=== PATIENT | female | born 1970 ===

== ENCOUNTER 2020-05-09 10:17 | Outpatient (REF) | payer OTHER, SELFPAY ==
[2020-05-09 11:25] LABS: Estimated Average Glucose 157 mg/dL; Hemoglobin A1c % 7.1 %
[2020-05-09 11:47] LABS: Alanine Aminotransferase 20 U/L (0-31); Anion Gap 14 (12-20); Aspartate Amino Transferase 18 U/L (5-31); Blood Urea Nitrogen 16 mg/dL (9-16); Calcium 8.9 mg/dL (8.4-10.2); Carbon Dioxide 20 mmol/L (22-29); Chloride 108 mmol/L (96-108); Cholesterol 157 mg/dL; Estimated Glomerular Filt Rate > 60; Glucose Fasting 149 mg/dL (60-99); HDL Cholesterol 37 mg/dL; LDL Cholesterol Calculated 89 mg/dl; Potassium 3.9 mmol/l (3.3-5.1); Sodium 138 mmol/L (135-145); Triglycerides 158 mg/dL
[2020-05-09 14:28] LABS: Creatinine Urine 182.96 mg/dL; Microalbum/Creatinine Ratio Ur 16.9 ug/mg cr
== END 2020-05-09 10:18 | disposition home or self-care (01) ==
LOC: HO.HMGCLDS 10:17
PROVIDERS: PCP Internal Medicine; Visit Provider Internal Medicine
DX: E78.5 Hyperlipidemia, unspecified (principal); I10 Essential (primary) hypertension; E11.29 Type 2 diabetes mellitus with other diabetic kidney complication; E11.65 Type 2 diabetes mellitus with hyperglycemia; E66.9 Obesity, unspecified; R80.9 Proteinuria, unspecified; Z79.4 Long term (current) use of insulin
CPT/HCPCS: 80048; 80061; 82043; 83036; 84450; 84460

== ENCOUNTER → 2020-08-18 09:46 | Outpatient (REF) | payer OTHER, SELFPAY ==
--- NOTE | 2020-08-18 09:53 | ECG_ITS ---
Test Reason : HTN Blood Pressure : / mmHG Vent. Rate : 053 BPM Atrial Rate : 053 BPM P-R Int : 132 ms QRS Dur : 100 ms QT Int : 442 ms P-R-T Axes : 063 -21 002 degrees QTc Int : 414 ms Sinus bradycardia with occasional Premature ventricular complexes Moderate voltage criteria for LVH, may be normal variant Borderline ECG No previous ECGs available Referred By: Vanna Stephens Electronically Signed By:JENNIFER LIVE
== END ==
LOC: HO.CARD 09:46
PROVIDERS: PCP Internal Medicine; Visit Provider Internal Medicine
DX: Z01.818 Encounter for other preprocedural examination (principal); I10 Essential (primary) hypertension; E78.5 Hyperlipidemia, unspecified; E11.65 Type 2 diabetes mellitus with hyperglycemia; Z79.4 Long term (current) use of insulin
CPT/HCPCS: 93005

== ENCOUNTER 2021-09-10 09:18 | Outpatient (REF) | payer OTHER, SELFPAY ==
[2021-09-10 11:11] LABS: MANUAL DIFF FLAG NO
[2021-09-10 11:22] LABS: Basophils Percent Auto 0.5 % (0-2); Eosinophils Absolute Auto 0.4 X10*3/uL (0.0-0.4); Eosinophils Percent Auto 6.5 % (0-4); Hematocrit 40.2 % (37.0-47.0); Hemoglobin 12.8 g/dl (12.0-16.0); Imm Gran Abs Auto 0.01 X10*3/uL (0.00-0.03); Imm Gran Pct Auto 0.2 % (0.0-0.4); Lymphocytes Absolute Auto 2.3 X10*3/uL (1.2-4.9); Mean Corpuscular HGB Conc 31.8 g/dl (31.0-35.0); Mean Corpuscular Hemoglobin 27.5 pg (27.0-33.0); Mean Corpuscular Volume 86.3 fL (80.0-98.0); Mean Platelet Volume 11.4 fL (9.4-12.3); Monocytes Absolute Auto 0.7 X10*3/uL (0.1-1.2); Monocytes Percent Auto 10.5 % (2-11); Neutrophils Absolute Auto 2.9 x10*3/uL (2.0-8.3); Neutrophils Percent Auto 46.3 % (45-73); Platelet Count 332 X10*3/uL (160-400); Red Blood Count 4.66 X10*6/uL (4.20-5.50); Red Cell Distribution Width 14.6 % (11.0-16.0); White Blood Count 6.3 X10*3/uL (4.8-10.8)
[2021-09-10 11:33] LABS: Alanine Aminotransferase 13 U/L (0-31); Anion Gap 14 (12-20); Aspartate Amino Transferase 12 U/L (5-31); Blood Urea Nitrogen 13 mg/dL (9-16); Calcium 9.5 mg/dL (8.4-10.2); Carbon Dioxide 19 mmol/L (22-29); Chloride 111 mmol/L (96-108); Cholesterol 174 mg/dL; Estimated Glomerular Filt Rate 59; Glucose Fasting 168 mg/dL (60-99); HDL Cholesterol 35 mg/dL; LDL Cholesterol Calculated 99 mg/dl; Potassium 3.7 mmol/L (3.3-5.1); Sodium 140 mmol/L (135-145); Triglycerides 204 mg/dL
[2021-09-10 11:55] LABS: Vitamin D 25-OH Total 9.5 ng/mL (>30)
[2021-09-10 11:57] LABS: Creatinine Urine 39.42 mg/dL; Microalbum/Creatinine Ratio Ur 17.7 ug/mg cr
== END 2021-09-10 09:19 | disposition home or self-care (01) ==
LOC: HO.HMGCLDS 09:18
PROVIDERS: Visit Provider Internal Medicine
DX: E11.29 Type 2 diabetes mellitus with other diabetic kidney complication (principal); E11.65 Type 2 diabetes mellitus with hyperglycemia; E78.5 Hyperlipidemia, unspecified; I10 Essential (primary) hypertension; R80.9 Proteinuria, unspecified; Z79.4 Long term (current) use of insulin
CPT/HCPCS: 36415; 80048; 80061; 82043; 82306; 84450; 84460; 85025

== ENCOUNTER 2022-12-13 13:41 | Outpatient (REF) | payer OTHER, SELFPAY ==
[2022-12-13 17:14] LABS: Alanine Aminotransferase 16 U/L (0-31); Anion Gap 13 (12-20); Aspartate Amino Transferase 14 U/L (5-31); Blood Urea Nitrogen 14 mg/dL (9-16); Calcium 9.3 mg/dL (8.4-10.2); Carbon Dioxide 18 mmol/L (22-29); Chloride 111 mmol/L (96-108); Cholesterol 156 mg/dL; Estimated Glomerular Filt Rate > 60; Glucose Fasting 159 mg/dL (60-99); HDL Cholesterol 39 mg/dL; LDL Cholesterol Calculated 91 mg/dl; Potassium 3.8 mmol/L (3.3-5.1); Sodium 138 mmol/L (135-145); Triglycerides 132 mg/dL
[2022-12-14 05:28] LABS: Estimated Average Glucose 160 mg/dL; Hemoglobin A1c % 7.2 %
== END 2022-12-13 13:42 | disposition home or self-care (01) ==
LOC: HO.HMGCLDS 13:41
PROVIDERS: PCP Internal Medicine; Visit Provider Internal Medicine
DX: E11.29 Type 2 diabetes mellitus with other diabetic kidney complication (principal); E78.5 Hyperlipidemia, unspecified; I10 Essential (primary) hypertension; R80.9 Proteinuria, unspecified; Z79.4 Long term (current) use of insulin
CPT/HCPCS: 36415; 80048; 80061; 82043; 82306; 83036; 84450; 84460

== ENCOUNTER 2022-12-21 09:34 | Outpatient (AMB) | payer OTHER, SELFPAY ==
--- NOTE | 2022-12-21 09:44 | A.OFFPC_ITS ---
<Statement entered by Vanna Stephens MD - 07/01/25 00:06> This note has been administratively?closed. Vital Signs 12/21/22 09:46 Height 5 ft 4 in Weight 200 lb BMI 34.3 BP 144/80 H Blood Pressure Location Lt brachial Position Sitting Pulse 58 Pulse Source Pulse Oximeter Pulse Oximetry (%) 96 Oxygen Delivery Method Room Air Intake Visit Reasons: f/u DM Intake Note: Pt is here today to f/u DM Allergies No Known Allergies Allergy (Verified 02/14/25 15:39) Medication List - Last Reconciled 12/21/22 by Vanna Stephens MD acetaminophen 650 mg PO Q6H acetazolamide ER 500 mg PO BID aspirin 81 mg PO DAILY blood sugar diagnostic (FreeStyle Lite Strips) Check blood sugar before meals 3 times a day; 30 days ibuprofen 200 mg PO Q6H PRN insulin glargine (Lantus Solostar U-100 Insulin) 50 units (0.5 mL) subcut QPM lisinopril 5 mg PO DAILY metformin 1,000 mg PO BID nifedipine ER 90 mg PO DAILY pen needle, diabetic (BD Ultra-Fine Mini Pen Needle) Use to inject insulin once daily Tobacco use date assessed: 12/21/22 Dental Screening Dental Screen Date: 12/21/22 HPI HPI Comments History of Present Illness Details 52-year-old lady here today for follow-u p on her diabetes mellitus. She is currently on Lantus Solostar 50 units at night, and metformin 1000 mg twice a day. Latest hemoglobin A1c is at 7.2%, and fasting lipids are within normal limits with an LDL cholesterol at 91 mg/dL. [facility] Medical History Tendinitis of right forearm Encephalocele Cerebrospinal fluid leak Obesity Meningioma Essential hypertension Dyslipidemia Diabetes mellitus with hyperglycemia, with long-term current use of insulin Surgical History H/O nasal sinusotomy History of ethmoidectomy History of resection of meningioma History of tubal ligation Family History Father Unknown family medical history Mother History of heart attack Stroke HTN (hypertension) Diabetes mellitus CVD (cardiovascular disease) Brother No problems noted. Sister No problems noted. Son No problems noted. Daughter No problems noted. Daughter No problems noted. Social History Housing: Apartment Alcohol intake: never Patient Tobacco Use Status: Current everyday Tobacco user Cigarettes Per Day: 5 e-Cigarette/Vaping Use: Never Used service: No Current occupational status: unemployed Cognitive needs: No Hearing needs: No Vision needs: Yes Questionnaire PHQ-9 Over the last 2 weeks, how often have you been bothered by any of the following problems? Depression Screening Interpretation: Negative [id number] - PHQ-9 Billing: Patient declined-do not bill Source: Developed by Drs. Bahman Wheat, Bety Amaya, Jerome Quiles and colleagues, with an educational arun from [employer]. Thrive Questionnaire Date Thrive assessed: 12/21/22 I am a: Patient What is your living situation today?: I have a steady place to live Within the past 12 months, did the food you bought not last and you didn't have the money to get more?: Never true Within the past 12 months, did you worry whether your food would run out before you got money to buy more?: Never true Do you have trouble paying for medicines?: No Do you have trouble getting transportation to medical appointments?: No Do you have trouble paying your heating and electricity bill?: No Do you have trouble taking care of your child, family member or friend?: No Do you have trouble with day-to-day activities such as bathing, preparing meals, shopping, managing finances, etc.?: I choose not to answer this question Are you currently unemployed and looking for a job?: No Are you interested in more education?: No AUDIT C Alcohol Use Questionnaire (AUDIT-C) 1. How often do you have a drink containing alcohol?: Never Total Score: 0 KYREE-7 AMB Questionnaire KYREE-7 Date KYREE - 7 assessed: 12/21/22 Source: Developed by Drs. Bahman Wheat, Jerome Olivia and colleagues, with an educational arun from [employer]. KYREE-7 Assessment Billing KYREE-7 Assessment Tool: pt declined-do not bill Physical exam (Primary Care) Vital Signs: Last Vital Signs Pulse 58 12/21/22 09:46 BP 144/80 H 12/21/22 09:46 Pulse Ox 96 12/21/22 09:46 Oxygen Delivery Method Room Air 12/21/22 09:46 BMI result Body Mass Index 34.3 Tobacco/Smoking Status: Tobacco use Status Tobacco use date assessed 12/21/22 12/21/22 09:44 Patient Tobacco Use Status Current everyday Tobacco 12/21/22 09:44 e-Cigarette/Vaping Use Never Used 12/21/22 09:44 Are you ready to quit: No Depression Screening Interpretation: Negative Thrive Assessment: Date of Thrive Assessment Date Thrive assessed 12/21/22 12/21/22 10:11 Const Other: Alert oriented x3, no acute distress noted ambulatory with normal gait Orientation/consciousness: patient oriented x3 HENMT Head: Yes normocephalic and Yes atraumatic Ears: external ears normal, TM's normal bilaterally and EAC's normal General nose exam: Normal external nose present and No nasal discharge present Eyes General: appearance normal, both eyes and all related structures Neck Other: Supple, no lymphadenopathy, thyroid gland nonpalpable Resp Auscultation: clear to auscultation bilaterally Cardio Other: S1-S2 present regular rate and rhythm GI Other: Obese, normal bowel sounds, soft, nontender, no mass palpated Neuro General: patient oriented x3, gait normal, tone normal, Normal light touch and pain sensation, no focal motor deficits and CN's II-XI intact bilaterally Extrem General: Yes full ROM, Yes no joint enlargement, Yes no clubbing, cyanosis or edema, Yes no calf tenderness and Yes normal gait Results Reviewed Results Reviewed: ENTERED: 12/13/22-1346 OT : ORDERED: Met Prof Fast, AST, ALT, Lipid Panel, Vitamin D 25-OH Test Result Flag Reference Site Sodium 138 135-145 mmol/L Potassium 3.8 3.3-5.1 mmol/L CL 111 H 96-108 mmol/L CO2 18 L 22-29 mmol/L Gap 13 12-20 BUN 14 9-16 mg/dL Creat 0.92 0.5-1.4 mg/dL EGFR > 60 NOTE: For -[place] individuals, multiply the result by 1.210. Chronic Kidney Disease: Estimated GFR < 60 mL/min/1.73m2 Severe Kidney Disease: Estimated GFR < 15 mL /min/1.73m2 FBS 159 H 60-99 mg/dL A fasting glucose of 126 mg/dl or greater on more than one occasion is considered diagnostic of diabetes. CA 9.3 8.4-10.2 mg/dL AST (GOT) 14 5-31 U/L ALT (GPT) 16 0-31 U/L Triglyceride 132 mg/dL Desirable Triglyceride: less than 150 mg/dL Borderline High Triglyceride 150-199 mg/dL High Triglyceride: 200-499 mg/dL Very High Triglyceride: greater than or equal to 5OO mg/dL Chol 156 mg/dL Desirable Cholesterol: less than 200 mg/dL Borderline High Cholesterol: 200-239 mg/dL High Cholesterol: greater than 239 mg/dL LDL Calculated 91 mg/dl Desirable LDL: less than 100 mg/dL Near Optimal/Above Optimal LDL: 110-129 mg/dL Borderline High LDL: 130-159 mg/dL High LDL: 160-189 mg/dL Very High LDL: greater than or equal to 190 mg/dL HDL 39 mg/dL Desirable HDL: greater than 40 mg/dL Note: This HDL assay may give artificially low results in patients with liver disease. Vit D 25-OH Tot 39.0 >30 ng/mL Health Based Reference Values* Laboratory Tests 09/10/21 12/13/22 08:21 13:47 Estimat Average Glucose 160 Hgb A1c (Clinic) 7.3 H Hemoglobin A1c % 7.2 ENTERED: 12/13/22-[address]: ORDERED: Met Prof Fast, AST, ALT, Lipid Panel, Vitamin D 25-OH N Test Result Flag Reference Site Sodium 138 135-145 mmol/L Potassium 3.8 3.3-5.1 mmol/L CL 111 H 96-108 mmol/L CO2 18 L 22-29 mmol/L Gap 13 12-20 BUN 14 9-16 mg/dL Creat 0.92 0.5-1.4 mg/dL EGFR > 60 NOTE: For -[place] individuals, multiply the result by 1.210. Chronic Kidney Disease: Estimated GFR < 60 mL/min/1.73m2 Severe Kidney Disease: Estimated GFR < 15 mL/min/1.73m2 FBS 159 H 60-99 mg/dL A fasting glucose of 126 mg/dl or greater on more than one occasion is considered diagnostic of diabetes. CA 9.3 8.4-10.2 mg/dL AST (GOT) 14 5-31 U/L ALT (GPT) 16 0-31 U/L Triglyceride 132 mg/dL Desirable Triglyceride: less than 150 mg/dL Borderline High Triglyceride 150-199 mg/dL High Triglyceride: 200-499 mg/dL Very High Triglyceride: greater than or equal to 5OO mg/dL Chol 156 mg/dL Desirable Cholesterol: less than 200 mg/dL Borderline High Cholesterol: 200-239 mg/dL High Cholesterol: greater than 239 mg/dL LDL Calculated 91 mg/dl Desirable LDL: less than 100 mg/dL Near Optimal/Above Optimal LDL: 110-129 mg/dL Borderline High LDL: 130-159 mg/dL High LDL: 160-189 mg/dL Very High LDL: greater than or equal to 190 mg/dL HDL 39 mg/dL Desirable HDL: greater than 40 mg/dL Note: This HDL assay may give artificially low results in patients with liver disease. Vit D 25-OH Tot 39.0 >30 ng/mL Health Based Reference Values* ENTERED: 12/13/22-[address] [facility] [address]: ORDERED: LETICIA Test Result Flag Reference Site Creat, Ur 186.50 mg/dL Microalbumin Ur 28.0 mg/L Alb/Creat Ratio 15.0 ug/mg cr Albumin/Creatinine Ratio Reference Ranges: Normal: < 30 ug/mg creatinine Microalbuminuria: 30 - 300 ug/mg creatinine Clinical Albuminuria: > 300 ug/mg creatinine Coding Level of Care Code Est Pt Level 4 (87224) Admin Sign Off/No Billing Diagnoses Controlled type 2 diabetes mellitus with microalbuminuria, with long-term current use of insulin E11.29; R80.9; Z79.4 Diabetes mellitus complication detail: with microalbuminuria Diabetes mellitus complication status: with kidney complications Essential hypertension I10 Dyslipidemia E78.5
[2022-12-21 09:46] VITALS: BP 144/80; PULSE 58; O2SAT 96; BMI 34.3
== END 2022-12-21 10:32 | disposition home or self-care (01) ==
PROVIDERS: PCP Internal Medicine; Visit Provider Internal Medicine
DX: E11.29 Type 2 diabetes mellitus with other diabetic kidney complication (principal); R80.9 Proteinuria, unspecified; Z79.4 Long term (current) use of insulin; I10 Essential (primary) hypertension; E78.5 Hyperlipidemia, unspecified
CPT/HCPCS: 99499

== ENCOUNTER 2023-11-07 10:31 | Outpatient (REF) | payer OTHER, SELFPAY ==
[2023-11-07 13:31] LABS: Estimated Average Glucose 194 mg/dL; Hemoglobin A1c % 8.4 % (<6.0)
[2023-11-07 13:54] LABS: Alanine Aminotransferase 12 U/L (0-31); Anion Gap 18 (12-20); Aspartate Amino Transferase 13 U/L (5-31); Blood Urea Nitrogen 21 mg/dL (9-16); Carbon Dioxide 17 mmol/L (22-29); Chloride 110 mmol/L (96-108); Cholesterol 182 mg/dL (<200); Estimated Glomerular Filt Rate 59; Glucose Fasting 187 mg/dL (60-99); HDL Cholesterol 32 mg/dL (>40); LDL Cholesterol Calculated 110 mg/dL (<100); Potassium 3.9 mmol/L (3.3-5.1); Sodium 141 mmol/L (135-145); Triglycerides 204 mg/dL (<150)
[2023-11-07 13:55] LABS: Vitamin D 25-OH Total 54.3 ng/mL (>30)
[2023-11-07 13:56] LABS: Creatinine Urine 70.88 mg/dL; Microalbum/Creatinine Ratio Ur 409.1 ug/mg cr (<30)
== END 2023-11-07 10:32 | disposition home or self-care (01) ==
LOC: HO.HMGCLDS 10:31
PROVIDERS: PCP Internal Medicine; Visit Provider Internal Medicine
DX: E11.29 Type 2 diabetes mellitus with other diabetic kidney complication (principal); R80.9 Proteinuria, unspecified; Z79.4 Long term (current) use of insulin; E66.9 Obesity, unspecified; I10 Essential (primary) hypertension; E78.5 Hyperlipidemia, unspecified; E11.65 Type 2 diabetes mellitus with hyperglycemia; Z78.0 Asymptomatic menopausal state
CPT/HCPCS: 36415; 80048; 80061; 82043; 82306; 82570; 83036; 84450; 84460

== ENCOUNTER 2023-11-09 10:54 | Outpatient (AMB) | payer OTHER, SELFPAY ==
--- NOTE | 2023-11-09 11:07 | MHC.PC.OV ---
Vital Signs 11/09/23 11:08 Height 5 ft 4 in Weight 195 lb BMI 33.5 BP 154/100 H Blood Pressure Location Rt brachial Position Sitting Pulse 51 Pulse Source Pulse Oximeter Pulse Oximetry (%) 97 Oxygen Delivery Method Room Air Intake Visit Reasons: OVERDUE FUP- DM NEEDS A1C Intake Note: Pt is here today to f/u DM Allergies No Known Allergies Allergy (Verified 11/14/23 14:45) Medication List - Last Reconciled 11/09/23 by Vanna Stephens MD acetaminophen 650 mg PO Q6H acetazolamide ER 500 mg PO BID aspirin 81 mg PO DAILY blood sugar diagnostic (FreeStyle Lite Strips) 1 strip miscellaneous TID 30 days cholecalciferol (vitamin D3) 50 mcg PO DAILY FreeStyle Deb 2 [place] (flash glucose scanning reader) As directed NS FreeStyle Deb 2 Sensor (flash glucose sensor) As directed NS ibuprofen 200 mg PO Q6H PRN insulin glargine (Lantus Solostar U-100 Insulin) 54 units (0.54 mL) subcut QPM 30 days lisinopril 10 mg PO DAILY metformin 1,000 mg PO BID nifedipine ER 90 mg PO DAILY pen needle, diabetic (BD Ultra-Fine Mini Pen Needle) Use to inject insulin once daily Tobacco use date assessed: 11/09/23 Dental Screening Dental Screen Date: 11/09/23 Did you have a dental visit in the last 12 months?: Yes Did you have a dental problem in the last 6 months where you did not have access to dental care?: Yes Was dental information given to patient?: Patient has dentist HPI OVERDUE FUP- DM NEEDS A1C HPI Details 53 Year old lady here today for follow-up on her hypertension and diabetes mellitus. Currently takes Lantus 50 units subQ at night, and metformin a 1000 mg 1 tablet twice a day. Latest fasting labs however showed uncontrolled diabetes mellitus with an A1c at 8.4%, and elevated LDL cholesterol at 110 mg/dL . Her blood pressure is also not at goal, despite taking lisinopril 10 mg once a and nifedipine ER 90 mg daily. She states that she has been taking her medications as directed, compliant with her diet but no exercise at all. She is also complaining of pain on right forearm just below the elbow, unable to do any twisting motion with her right hand, unable to open jars with her right hand. No history of trauma or strenuous exertion. [facility] Medical History (Updated 11/09/23 @ 12:04 by Vanna Stephens MD) Tendinitis of right forearm Encephalocele Cerebrospinal fluid leak Obesity Meningioma Essential hypertension Dyslipidemia Diabetes mellitus with hyperglycemia, with long-term current use of insulin Surgical History H/O nasal sinusotomy History of ethmoidectomy History of resection of meningioma History of tubal ligation Family History Father Unknown family medical history Mother History of heart attack Stroke HTN (hypertension) Diabetes mellitus CVD (cardiovascular disease) Brother No problems noted. Sister No problems noted. Son No problems noted. Daughter No problems noted. Daughter No problems noted. Social History Housing: Apartment Alcohol intake: never Patient Tobacco Use Status: Current everyday Tobacco user Cigarettes Per Day: 4 e-Cigarette/Vaping Use: Never Used service: No Current occupational status: unemployed Cognitive needs: No Hearing needs: No Vision needs: Yes Questionnaire PHQ-9 Over the last 2 weeks, how often have you been bothered by any of the following problems? 1. Little interest or pleasure in doing things: not at all 2. Feeling down, depressed, or hopeless: not at all 3. Trouble falling or staying asleep, or sleeping too much: not at all 4. Feeling tired or having little energy: not at all 5. Poor appetite or overeating: not at all 6. Feeling bad about yourself - or that you are a failure or have let yourself or your family down: not at all 7. Trouble concentrating on things, such as reading the newspaper or watching television: not at all 8. Moving or speaking so slowly that other people could have noticed. Or the opposite - being so fidgety or restless that you have been moving around a lot more than usual: not at all 9. Thoughts that you would be better off or of hurting yourself in some way: not at all Total score: 0 Depression Screening Interpretation: Negative Depression Screening Done: Yes 12184 - PHQ-9 Billing: Yes Source: Developed by Drs. Bahman Wheat, Bety Amaya, Jerome Quiles and colleagues, with an educational arun from [employer]. Thrive Questionnaire Date Thrive assessed: 11/09/23 I am a: Patient What is your living situation today?: I have a steady place to live Within the past 12 months, did the food you bought not last and you didn't have the money to get more?: Never true Within the past 12 months, did you worry whether your food would run out before you got money to buy more?: Never true Do you have trouble paying for medicines?: No Do you have trouble getting transportation to medical appointments?: No Do you have trouble paying your heating and electricity bill?: Yes Do you have trouble taking care of your child, family member or friend?: No Do you have trouble with day-to-day activities such as bathing, preparing meals, shopping, managing finances, etc.?: Yes Are you currently unemployed and looking for a job?: No Are you interested in more education?: No THRIVE Score: 1 AUDIT C Alcohol Use Questionnaire (AUDIT-C) 1. How often do you have a drink containing alcohol?: Never Total Score: 0 KYREE-7 AMB Questionnaire KYREE-7 Date KYREE - 7 assessed: 11/09/23 Feeling nervous, anxious, or on edge: 0 = Not at all Not being able to stop or control worryin = Not at all Worrying too much about different things: 0 = Not at all Trouble relaxin = Not at all Being so restless that it is hard to sit still: 0 = Not at all Becoming easily annoyed or irritable: 0 = Not at all Feeling afraid as if something awful might happen: 0 = Not at all Total KYREE-7 score (0-4 normal; 5-9 mild; 10-14 moderate; 15-21 severe): 0 Source: Developed by Drs. Bahman Wheat, Bety Amaya, Jerome Quiles and colleagues, with an educational arun from [employer]. KYREE-7 Assessment Billing KYREE-7 Assessment Tool: KYREE-7 Assessment 23868 Review of Systems Const Denies body aches, Denies fatigue, Denies fever(s), Denies headache(s) and Denies weakness Eyes Details: Sees [facility] Denies change in vision ENT Denies dizziness, Denies headache(s), Denies nasal congestion, Denies nasal obstruction, Denies neck pain, Denies post nasal drip, Denies tinnitus and Denies sore throat Card Denies chest pain, Denies lightheadedness, Denies palpitations and Denies dyspnea Resp Denies chest congestion, Denies cough, Denies dyspnea and Denies wheezing GI Denies abdominal pain, Denies change in bowel habits and Denies heartburn Denies urinary frequency, Denies dysuria and Denies urinary urgency Musc Reports as per HPI, Denies myalgias, Denies muscle weakness, Denies neck pain, Denies numbness and Reports radiating pain into limb (Right for) Skin/Breast Denies lesions and Denies rash Neuro Denies dizziness, Denies headache(s), Denies numbness and Denies weakness Psych Reports as per HPI Endo Denies fatigue, Denies polydipsia, Denies polyuria and Denies palpitations Jaron/Lymph Denies easy bruising Aller/Immun Denies seasonal rhinorrhea and Denies wheezing Physical exam (Primary Care) Vital Signs: Last Vital Signs Pulse 51 11/09/23 11:08 BP 154/100 H 11/09/23 11:08 Pulse Ox 97 11/09/23 11:08 Oxygen Delivery Method Room Air 11/09/23 11:08 BMI result Body Mass Index 33.5 Tobacco/Smoking Status: Tobacco use Status Tobacco use date assessed 11/09/23 11/09/23 11:15 Patient Tobacco Use Status Current everyday Tobacco 11/09/23 11:08 e-Cigarette/Vaping Use Never Used 11/09/23 11:08 Are you ready to quit: No PHQ-9: PHQ-9 Score PHQ-9: Total score 0 11/09/23 11:56 Depression Screening Interpretation: Negative Thrive Assessment: Date of Thrive Assessment Date Thrive assessed 11/09/23 11/09/23 11:56 Const Other: Alert oriented x3, no acute distress noted ambulatory with normal gait HENMT Head: Yes normocephalic Ears: external ears normal General nose exam: Normal external nose present and No nasal discharge present Eyes General: appearance normal, both eyes and all related structures Neck Other: Supple, no lymphadenopathy, thyroid gland nonpalpable Resp Auscultation: clear to auscultation bilaterally Cardio Other: S1-S2 present regular rate and rhythm GI Other: Obese, normal bowel sounds, soft, nontender, no mass palpated General: Yes no CVA tenderness Back/Spine/Pelvis Back: no CVA tenderness and No back tenderness Neuro General: gait normal, tone normal, Normal light touch and pain sensation, no focal motor deficits and CN's II-XI intact bilaterally Extrem General: Yes full ROM, Yes no joint enlargement, Yes no clubbing, cyanosis or edema, Yes no calf tenderness and Yes normal gait Results Reviewed Results Reviewed: caron: Natalie Rayo Age/Sex: 53/F : 1970 Unit#: [id number] Attend Dr: Vanna Stephens MD Re11/07/23 Status: DEP REF Location: [facility] Disch: SPEC : [id number] GABRIELLE: 11/07/23 STATUS: COMP REQ : [id number] RECD: 11/07/23-[address]: Vanna Stephens MD COMP: 11/07/23 ENTERED: 11/07/23-[address]: ORDERED: Met Prof Fast, AST, ALT, Lipid Panel, Vitamin D 25-OH Test Result Flag Reference Sodium 141 135-145 mmol/L Potassium 3.9 3.3-5.1 mmol/L CL 110 H 96-108 mmol/L CO2 17 L 22-29 mmol/L Gap 18 12-20 BUN 21 H 9-16 mg/dL Creat 0.99 0.5-1.4 mg/dL EGFR 59 NOTE: For -[place] individuals, multiply the result by 1.210. Chronic Kidney Disease: Estimated GFR < 60 mL/min/1.73m2 Severe Kidney Disease: Estimated GFR < 15 mL/min/1.73m2 FBS 187 H 60-99 mg/dL A fasting glucose of 126 mg/dl or greater on more than one occasion is considered diagnostic of diabetes. CA 10.0 # 8.4-10.2 mg/dL AST (GOT) 13 5-31 U/L ALT (GPT) 12 0-31 U/L Triglyceride 204 H <150 mg/dL Desirable Triglyceride: less than 150 mg/dL Borderline High Triglyceride 150-199 mg/dL High Triglyceride: 200-499 mg/dL Very High Triglyceride: greater than or equal to 5OO mg/dL Cholesterol 182 <200 mg/dL Desirable Cholesterol: less than 200 mg/dL Borderline High Cholesterol: 200-239 mg/dL High Cholesterol: greater than 239 mg/dL LDL Calculated 110 H <100 mg/dL Desirable LDL: less than 100 mg/dL Near Optimal/Above Optimal LDL: 110-129 mg/dL Borderline High LDL: 130-159 mg/dL High LDL: 160-189 mg/dL Very High LDL: greater than or equal to 190 mg/dL HDL 32 L >40 mg/dL Desirable HDL: greater than 40 mg/dL Note: This HDL assay may give artificially low results in patients with liver disease. Vit D 25-OH Tot 54.3 >30 ng/mL Health Based Reference Values* < 20 ng/mL Deficient 20-30 ng/mL Insufficient > 30 ng/mL Sufficient Name: Natalie Rayo Age/Sex: 53/F : 1970 Unit#: [id number] Attend Dr: Vanna Stephens MD Re11/07/23 Status: DEP [facility] Disch: SPEC : [id number] GABRIELLE: 11/07/23 STATUS: COMP REQ : [id number] RECD: 11/07/[address]: Vanna Stephens MD COMP: 11/07/23 ENTERED: 11/07/23 [facility] DR: ORDERED: Hgb A1c Test Result Flag Reference A1c % 8.4 H <6.0 % Hemoglobin A1C Reference Range Adults: 4.8 - 6.0 % Non diabetic: < 6.0 % Goal: < 7.0 % Additional Action Suggested: > 8.0 % Note: Hemoglobin A1c results are invalid for patients with abnormal amounts of HbF. Blood transfusions may impact the HbA1c concentration in the patient sample. Est. Avg. Gluc 194 mg/dL Name: Natalie Rayo Age/Sex: 53/F : 1970 Unit#: [id number] Attend Dr: Vanna Stephens MD Re11/07/23 Status: DEP REF Location: [facility] Disch: SPEC : [id number] GABRIELLE: 11/07/23 STATUS: COMP REQ : [id number] RECD: 11/07/23-[address]: Vanna Stephens MD COMP: 11/07/23-1355 ENTERED: 11/07/23-[address]: ORDERED: MICARU Test Result Flag Reference Creat, Ur 70.88 mg/dL Microalbumin Ur 290.0 mg/L Alb/Creat Ratio 409.1 H <30 ug/mg cr Albumin/Creatinine Ratio Reference Ranges: Normal: < 30 ug/mg creatinine Microalbuminuria: 30 - 300 ug/mg creatinine Clinical Albuminuria: > 300 ug/mg creatinine Assessment and Plan Assessment & Plan (1) Diabetes mellitus with hyperglycemia, with long-term current use of insulin: Code(s): E11.65 - Type 2 diabetes mellitus with hyperglycemia; Z79.4 - long term acute care registered nurse (current) use of insulin Qualifiers: Diabetes mellitus type: type 2 Qualified Code(s): E11.65 - Type 2 diabetes mellitus with hyperglycemia; Z79.4 - senior care (current) use of insulin Plan: Recent lab results reviewed with patient, with sugar and hemoglobin A1c not at goal, at 8.4%. Continue metformin 1000 mg twice a day, and Lantus Solostar 54 units at night. Started on Jardiance 10 mg daily Continue check fasting blood sugar at least twice a day before meals., maintain log and bring to next appointment for review. Reinforced diabetic diet and regular exercise with patient. Counseled regarding importance of yearly diabetes retinopathy screening. Patient advised to inspect feet daily, for any signs of injury, callus or infection. Compliance with diet and regular exercise again stressed. Blood pressure goal is less than 130/80, goal LDL is less than 100 and goal hemoglobin A1c is less than 7% follow-up appointment made in--3-months, after fasting labs done. (2) Essential hypertension: Code(s): I10 - Essential (primary) hypertension Plan: Blood pressure not at goal, increase lisinopril dose to 20 mg daily. Reinforced importance of following healthy diet, low in salt, and get regular exercise (3) Dyslipidemia: Code(s): E78.5 - Hyperlipidemia, unspecified Plan: LDL not at goal of less than 100 mg/dL. Will start on rosuvastatin 5 mg per tablet taken once a day. Adhere to a low-cholesterol diet and get regular exercise (4) Tendinitis of right forearm: Code(s): M77.8 - Other enthesopathies, not elsewhere classified Plan: Occupational therapy referral ordered Orders: Orders Hemoglobin A1c 11/07/23 E11.29 - Type 2 diabetes mellitus with other diabetic kidney complication, E11.65 - Type 2 diabetes mellitus with hyperglycemia, E66.9 - Obesity, unspecified, E78.5 - Hyperlipidemia, unspecified, I10 - Essential (primary) hypertension, R80.9 - Proteinuria, unspecified, Z78.0 - Asymptomatic menopausal state, Z79.4 - senior care (current) use of insulin Lipid Panel 11/07/23 E11.29 - Type 2 diabetes mellitus with other diabetic kidney complication, E11.65 - Type 2 diabetes mellitus with hyperglycemia, E66.9 - Obesity, unspecified, E78.5 - Hyperlipidemia, unspecified, I10 - Essential (primary) hypertension, R80.9 - Proteinuria, unspecified, Z78.0 - Asymptomatic menopausal state, Z79.4 - long term acute care registered nurse (current) use of insulin Microalbumin, Random (w Creat) 11/07/23 E11.29 - Type 2 diabetes mellitus with other diabetic kidney complication, E11.65 - Type 2 diabetes mellitus with hyperglycemia, E66.9 - Obesity, unspecified, E78.5 - Hyperlipidemia, unspecified, I10 - Essential (primary) hypertension, R80.9 - Proteinuria, unspecified, Z78.0 - Asymptomatic menopausal state, Z79.4 - senior care (current) use of insulin Alanine Aminotransferase 11/07/23 E11.29 - Type 2 diabetes mellitus with other diabetic kidney complication, E11.65 - Type 2 diabetes mellitus with hyperglycemia, E66.9 - Obesity, unspecified, E78.5 - Hyperlipidemia, unspecified, I10 - Essential (primary) hypertension, R80.9 - Proteinuria, unspecified, Z78.0 - Asymptomatic menopausal state, Z79.4 - senior care (current) use of insulin Vitamin D 25-OH Total 11/07/23 E11.29 - Type 2 diabetes mellitus with other diabetic kidney complication, E11.65 - Type 2 diabetes mellitus with hyperglycemia, E66.9 - Obesity, unspecified, E78.5 - Hyperlipidemia, unspecified, I10 - Essential (primary) hypertension, R80.9 - Proteinuria, unspecified, Z78.0 - Asymptomatic menopausal state, Z79.4 - senior care (current) use of insulin Basic Metabolic Panel Fasting 11/07/23 E11.29 - Type 2 diabetes mellitus with other diabetic kidney complication, E11.65 - Type 2 diabetes mellitus with hyperglycemia, E66.9 - Obesity, unspecified, E78.5 - Hyperlipidemia, unspecified, I10 - Essential (primary) hypertension, R80.9 - Proteinuria, unspecified, Z78.0 - Asymptomatic menopausal state, Z79.4 - senior care (current) use of insulin Aspartate Amino Transferase 11/07/23 E11.29 - Type 2 diabetes mellitus with other diabetic kidney complication, E11.65 - Type 2 diabetes mellitus with hyperglycemia, E66.9 - Obesity, unspecified, E78.5 - Hyperlipidemia, unspecified, I10 - Essential (primary) hypertension, R80.9 - Proteinuria, unspecified, Z78.0 - Asymptomatic menopausal state, Z79.4 - long term acute care registered nurse (current) use of insulin Medications: New Jardiance (empagliflozin) Take 1 hour before breakfast in the morning just with a glass of water 10 mg PO QAM 30 tabs 5RF NS rosuvastatin 5 mg PO DAILY 30 tabs 6RF E11.65 - Type 2 diabetes mellitus with hyperglycemia, E78.5 - Hyperlipidemia, unspecified, Z79.4 - senior care (current) use of insulin Changed From lisinopril 10 mg PO DAILY 90 tabs 3RF E11.29 - Type 2 diabetes mellitus with other diabetic kidney complication, E11.65 - Type 2 diabetes mellitus with hyperglycemia, R80.9 - Proteinuria, unspecified, Z79.4 - senior care (current) use of insulin To lisinopril 20 mg PO DAILY 30 tabs 5RF E11.29 - Type 2 diabetes mellitus with other diabetic kidney complication, E11.65 - Type 2 diabetes mellitus with hyperglycemia, R80.9 - Proteinuria, unspecified, Z79.4 - long term acute care registered nurse (current) use of insulin Refilled metformin 1,000 mg PO BID 60 tabs 5RF cholecalciferol (vitamin D3) 50 mcg PO DAILY 90 caps 3RF insulin glargine (Lantus Solostar U-100 Insulin) 54 units (0.54 mL) subcut QPM 30 days 16.2 mL 5RF E11.65 - Type 2 diabetes mellitus with hyperglycemia, Z79.4 - long term acute care registered nurse (current) use of insulin Coding Level of Care Code Est Pt Level 4 (37782) Complex EM visit Add On G2211 Diagnoses Type 2 diabetes mellitus with hyperglycemia, with long-term current use of insulin E11.65; Z79.4 Diabetes mellitus type: type 2 Essential hypertension I10 Dyslipidemia E78.5 Tendinitis of right forearm M77.8 Additional Codes KYREE-7 Assessment Billing - KYREE-7 Assessment Tool: KYREE-7 Assessment 89288 ([id number])
[2023-11-09 11:08] VITALS: BP 154/100; PULSE 51; O2SAT 97; BMI 33.5
== END 2023-11-09 12:08 | disposition home or self-care (01) ==
PROVIDERS: PCP Internal Medicine; Visit Provider Internal Medicine
DX: E11.65 Type 2 diabetes mellitus with hyperglycemia (principal); Z79.4 Long term (current) use of insulin; I10 Essential (primary) hypertension; E78.5 Hyperlipidemia, unspecified; M77.8 Other enthesopathies, not elsewhere classified
CPT/HCPCS: 99214; G2211

== ENCOUNTER 2023-12-15 10:30 | Outpatient (RCR) | payer OTHER, SELFPAY | END 2024-02-13 11:44 | disposition home or self-care (01) | LOC: HO.OT 10:30 | PROVIDERS: PCP Internal Medicine; Visit Provider Internal Medicine | DX: M77.8 Other enthesopathies, not elsewhere classified (principal) | CPT/HCPCS: 97110; 97166 ==

== ENCOUNTER 2024-05-02 08:37 | Outpatient (REF) | payer OTHER, SELFPAY ==
[2024-05-02 10:38] LABS: Estimated Average Glucose 160 mg/dL; Hemoglobin A1C 189.9554 umol/L; Hemoglobin A1c % 7.2 % (<6.0)
[2024-05-02 11:11] LABS: Alanine Aminotransferase 10 U/L (0-31); Anion Gap 13 (12-20); Aspartate Amino Transferase 17 U/L (5-31); Blood Urea Nitrogen 18 mg/dL (9-16); Calcium 9.7 mg/dL (8.4-10.2); Carbon Dioxide 19 mmol/L (22-29); Chloride 113 mmol/L (96-108); Cholesterol 104 mg/dL (<200); Estimated Glomerular Filt Rate 58; Glucose Fasting 175 mg/dL (60-99); HDL Cholesterol 35 mg/dL (>40); LDL Cholesterol Calculated 48 mg/dL (<100); Potassium 3.8 mmol/L (3.3-5.1); Sodium 141 mmol/L (135-145); Triglycerides 108 mg/dL (<150); Vitamin D 25-OH Total 53.5 ng/mL (>30)
[2024-05-02 11:56] LABS: Creatinine Urine 81.72 mg/dL; Microalbum/Creatinine Ratio Ur 9.7 ug/mg cr (<30)
== END 2024-05-02 08:38 | disposition home or self-care (01) ==
LOC: HO.HMGCLDS 08:37
PROVIDERS: PCP Internal Medicine; Visit Provider Internal Medicine
DX: E66.9 Obesity, unspecified (principal); I10 Essential (primary) hypertension; E78.5 Hyperlipidemia, unspecified; E11.65 Type 2 diabetes mellitus with hyperglycemia; Z79.4 Long term (current) use of insulin
CPT/HCPCS: 36415; 80048; 80061; 82043; 82306; 82570; 83036; 84450; 84460

== ENCOUNTER 2024-07-04 09:04 | Outpatient (AMB) | payer OTHER, SELFPAY ==
[2024-07-04 09:05] VITALS: BP 132/82; PULSE 63; RESP 16; TEMP 36.4; O2SAT 97; BMI 32.8
--- NOTE | 2024-07-04 09:05 | A.OFFPC_ITS ---
Vital Signs 07/04/24 09:05 Height 5 ft 4 in Weight 191 lb BMI 32.8 BP 132/82 Blood Pressure Location Rt brachial Position Sitting Respiration 16 Pulse 63 Pulse Source Pulse Oximeter Temp 97.6 F Temp Source Oral Pulse Oximetry (%) 97 Oxygen Delivery Method Room Air Intake Visit Reasons: F/U~ Appt reschedule from 02/26 Intake Note: Pt is here today to f/u DM Allergies No Known Allergies Allergy (Verified 07/04/24 09:07) Tobacco use date assessed: 07/04/24 Dental Screening Dental Screen Date: 07/04/24 Did you have a dental visit in the last 12 months?: No Did you have a dental problem in the last 6 months where you did not have access to dental care?: No Was dental information given to patient?: No [facility] Medical History (Updated 05/02/24 @ 03:36 by Vanna Stephens MD) Tendinitis of right forearm Encephalocele Cerebrospinal fluid leak Obesity Meningioma Essential hypertension Dyslipidemia Diabetes mellitus with hyperglycemia, with long-term current use of insulin Surgical History (Updated 05/02/24 @ 03:36 by Vanna Stephens MD) H/O nasal sinusotomy History of ethmoidectomy History of resection of meningioma History of tubal ligation Family History Father Unknown family medical history Mother History of heart attack Stroke HTN (hypertension) Diabetes mellitus CVD (cardiovascular disease) Brother No problems noted. Sister No problems noted. Son No problems noted. Daughter No problems noted. Daughter No problems noted. Social History Housing: Apartment Alcohol intake: never Patient Tobacco Use Status: Current everyday Tobacco user Cigarettes Per Day: 4 e-Cigarette/Vaping Use: Never Used service: No Current occupational status: unemployed Cognitive needs: No Hearing needs: No Vision needs: Yes Questionnaire PHQ-9 Over the last 2 weeks, how often have you been bothered by any of the following problems? 1. Little interest or pleasure in doing things: not at all 2. Feeling down, depressed, or hopeless: not at all 3. Trouble falling or staying asleep, or sleeping too much: not at all 4. Feeling tired or having little energy: not at all 5. Poor appetite or overeating: not at all 6. Feeling bad about yourself - or that you are a failure or have let yourself or your family down: not at all 7. Trouble concentrating on things, such as reading the newspaper or watching television: not at all 8. Moving or speaking so slowly that other people could have noticed. Or the opposite - being so fidgety or restless that you have been moving around a lot more than usual: not at all 9. Thoughts that you would be better off or of hurting yourself in some way: not at all Total score: 0 Depression Screening Interpretation: Negative Depression Screening Done: Yes 32187 - PHQ-9 Billing: Yes Source: Developed by Drs. Bahman Wheat, Bety Amaya, Jerome Quiles and colleagues, with an educational arun from [employer]. Thrive Questionnaire Date Thrive assessed: 07/04/24 I am a: Patient What is your living situation today?: I have a steady place to live Within the past 12 months, did the food you bought not last and you didn't have the money to get more?: Never true Within the past 12 months, did you worry whether your food would run out before you got money to buy more?: Never true Do you have trouble paying for medicines?: No Do you have trouble getting transportation to medical appointments?: No Do you have trouble paying your heating and electricity bill?: No Do you have trouble taking care of your child, family member or friend?: No Do you have trouble with day-to-day activities such as bathing, preparing meals, shopping, managing finances, etc.?: No Are you currently unemployed and looking for a job?: No Are you interested in more education?: No THRIVE Score: 0 AUDIT C Alcohol Use Questionnaire (AUDIT-C) 1. How often do you have a drink containing alcohol?: Never Total Score: 0 KYREE-7 AMB Questionnaire KYREE-7 Date KYREE - 7 assessed: 07/04/24 Feeling nervous, anxious, or on edge: 0 = Not at all Not being able to stop or control worryin = Not at all Worrying too much about different things: 0 = Not at all Trouble relaxin = Not at all Being so restless that it is hard to sit still: 0 = Not at all Becoming easily annoyed or irritable: 0 = Not at all Feeling afraid as if something awful might happen: 0 = Not at all Total KYREE-7 score (0-4 normal; 5-9 mild; 10-14 moderate; 15-21 severe): 0 Source: Developed by Drs. Bahman Wheat, Bety Amaya, Jerome Quiles and colleagues, with an educational arun from [employer]. Physical exam (Primary Care) Tobacco/Smoking Status: Tobacco use Status Tobacco use date assessed 11/09/23 11/09/23 11:15 Patient Tobacco Use Status Current everyday Tobacco 11/09/23 11:08 e-Cigarette/Vaping Use Never Used 11/09/23 11:08 Depression Screening Interpretation: Negative Thrive Assessment: Date of Thrive Assessment Date Thrive assessed 11/09/23 11/09/23 11:56 Coding Additional Codes PHQ-9 - 14411 - PHQ-9 Billing: Yes ([id number])
--- NOTE | 2024-07-04 09:25 | A.OFFPC_ITS ---
Vital Signs 07/04/24 09:05 Height 5 ft 4 in Weight 191 lb BMI 32.8 BP 132/82 Blood Pressure Location Rt brachial Position Sitting Respiration 16 Pulse 63 Pulse Source Pulse Oximeter Temp 97.6 F Temp Source Oral Pulse Oximetry (%) 97 Oxygen Delivery Method Room Air Intake Visit Reasons: F/U~ Appt reschedule from 02/26 Intake Note: Pt is here today for a follow up. Allergies No Known Allergies Allergy (Verified 07/08/24 15:52) Medication List - Last Reconciled 07/04/24 by Vanna Stephens MD acetaminophen 650 mg PO Q6H acetazolamide ER 500 mg PO BID aspirin 81 mg PO DAILY blood sugar diagnostic (FreeStyle Lite Strips) 1 strip miscellaneous TID 30 days cholecalciferol (vitamin D3) 50 mcg PO DAILY ibuprofen 200 mg PO Q6H PRN insulin glargine (Lantus Solostar U-100 Insulin) 54 units (0.54 mL) subcut QPM 30 days Jardiance (empagliflozin) 10 mg PO QAM NS lisinopril 20 mg PO DAILY metformin 1,000 mg PO BID nifedipine ER 90 mg PO DAILY pen needle, diabetic (BD Ultra-Fine Mini Pen Needle) Use to inject insulin once daily rosuvastatin 5 mg PO DAILY Tobacco use date assessed: 11/09/23 Dental Screening Dental Screen Date: 11/09/23 HPI F/U~ Appt reschedule from 02/26 HPI Details 53-year-old lady with diabetes mellitus, currently on Jardiance 10 mg daily in a.m., Lantus 54 units at night and metformin 1000 mg 1 tablet twice a day, has dyslipidemia currently on rosuvastatin 5 mg daily, here today for her follow-up. She had recent fasting labs done which showed improvement in diabetes control now with hemoglobin A1c at 7.2%, as compared to an A1c of 8.4% in October of 2023. Fasting lipids are within normal limits, and urine microalbuminuria screening was negative. [facility] Medical History (Updated 07/04/24 @ 09:51 by Vanna Stephens MD) Tendinitis of right forearm Encephalocele Cerebrospinal fluid leak Obesity Meningioma Essential hypertension Dyslipidemia Diabetes mellitus with hyperglycemia, with long-term current use of insulin Surgical History H/O nasal sinusotomy History of ethmoidectomy History of resection of meningioma History of tubal ligation Family History Father Unknown family medical history Mother History of heart attack Stroke HTN (hypertension) Diabetes mellitus CVD (cardiovascular disease) Brother No problems noted. Sister No problems noted. Son No problems noted. Daughter No problems noted. Daughter No problems noted. Social History Housing: Apartment Alcohol intake: never Patient Tobacco Use Status: Current everyday Tobacco user Cigarettes Per Day: 4 e-Cigarette/Vaping Use: Never Used service: No Current occupational status: unemployed Cognitive needs: No Hearing needs: No Vision needs: Yes Questionnaire Thrive Questionnaire Date Thrive assessed: 11/09/23 KYREE-7 AMB Questionnaire KYREE-7 Date KYREE - 7 assessed: 11/09/23 Source: Developed by Drs. Bahman Wheat, Bety Amaya, Jerome Quiles and colleagues, with an educational arun from [employer]. Review of Systems Const Denies body aches, Denies fatigue, Denies fever(s), Denies headache(s) and Denies weakness Eyes Details: Goes to [facility] in [place] for her diabetes retinopathy screening Denies change in vision ENT Denies dizziness, Denies headache(s), Denies nasal congestion, Denies nasal obstruction, Denies neck pain, Denies post nasal drip, Denies tinnitus and Denies sore throat Card Denies chest pain, Denies lightheadedness, Denies palpitations and Denies dyspnea Resp Denies chest congestion, Denies cough, Denies dyspnea and Denies wheezing GI Denies abdominal pain, Denies change in bowel habits and Denies heartburn Denies urinary frequency, Denies dysuria and Denies urinary urgency Musc Reports as per HPI, Denies myalgias, Denies muscle weakness, Denies neck pain, Denies numbness and Reports radiating pain into limb (Right for) Skin/Breast Denies lesions and Denies rash Neuro Denies dizziness, Denies headache(s), Denies numbness and Denies weakness Psych Reports as per HPI Endo Denies fatigue, Denies polydipsia, Denies polyuria and Denies palpitations Jaron/Lymph Denies easy bruising Aller/Immun Denies seasonal rhinorrhea and Denies wheezing Physical exam (Primary Care) Vital Signs: Last Vital Signs Temp 97.6 F 07/04/24 09:05 Pulse 63 07/04/24 09:05 Resp 16 07/04/24 09:05 BP 132/82 07/04/24 09:05 Pulse Ox 97 07/04/24 09:05 Oxygen Delivery Method Room Air 07/04/24 09:05 BMI result Body Mass Index 32.8 Tobacco/Smoking Status: Tobacco use Status Tobacco use date assessed 11/09/23 07/04/24 09:25 Patient Tobacco Use Status Current everyday Tobacco 07/04/24 09:25 e-Cigarette/Vaping Use Never Used 07/04/24 09:25 Are you ready to quit: No Thrive Assessment: Date of Thrive Assessment Date Thrive assessed 11/09/23 07/04/24 09:25 Const Other: Alert oriented x3, no acute distress noted ambulatory with normal gait [facility] Head: Yes normocephalic Ears: external ears normal General nose exam: Normal external nose present and No nasal discharge present Eyes General: appearance normal, both eyes and all related structures Neck Other: Supple, no lymphadenopathy, thyroid gland nonpalpable Resp Auscultation: clear to auscultation bilaterally Cardio Other: S1-S2 present regular rate and rhythm GI Other: Obese, normal bowel sounds, soft, nontender, no mass palpated General: Yes no CVA tenderness Back/Spine/Pelvis Back: no CVA tenderness and No back tenderness Neuro General: gait normal, tone normal, Normal light touch and pain sensation, no focal motor deficits and CN's II-XI intact bilaterally Extrem General: Yes full ROM, Yes no joint enlargement, Yes no clubbing, cyanosis or edema, Yes no calf tenderness and Yes normal gait Results Reviewed Results Reviewed: Laboratory Tests 11/07/23 05/02/24 05/02/24 10:35 08:52 09:00 Estimat Average Glucose 194 160 Hemoglobin A1c % 8.4 H 7.2 H Urine Creatinine 70.88 81.72 Urine Microalbumin 290.0 8.0 Microalb/Creat Ratio 409.1 H 9.7 Name: GirmaNatalie Age/Sex: 53/F : 1970 Unit#: [id number] Attend Dr: Vanna Stephens MD Re05/02/24 Status: DEP REF Location: TOO Disch: SPEC : [id number] GABRIELLE: 05/02/24 STATUS: COMP REQ : [id number] RECD: 05/02/24-[address]: Vanna Stephens MD COMP: 05/02/24 ENTERED: 05/02/[address] [facility] DR: ORDERED: Met Prof Fast, AST, ALT, Lipid Panel, Vitamin D 25-OH Test Result Flag Reference Sodium 141 135-145 mmol/L Potassium 3.8 3.3-5.1 mmol/L CL 113 H 96-108 mmol/L CO2 19 L 22-29 mmol/L Gap 13 12-20 BUN 18 H 9-16 mg/dL Creat 1.01 0.5-1.4 mg/dL eGFR 58 Chronic Kidney Disease: Estimated GFR < 60 mL/min/1.73m2 Severe Kidney Disease: Estimated GFR < 15 mL /min/1.73m2 FBS 175 H 60-99 mg/dL A fasting glucose of 126 mg/dl or greater on more than one occasion is considered diagnostic of diabetes. CA 9.7 8.4-10.2 mg/dL AST (GOT) 17 5-31 U/L ALT (GPT) 10 0-31 U/L Triglyceride 108 <150 mg/dL Desirable Triglyceride: less than 150 mg/dL Borderline High Triglyceride 150-199 mg/dL High Triglyceride: 200-499 mg/dL Very High Triglyceride: greater than or equal to 5OO mg/dL Cholesterol 104 <200 mg/dL Desirable Cholesterol: less than 200 mg/dL Borderline High Cholesterol: 200-239 mg/dL High Cholesterol: greater than 239 mg/dL LDL Calculated 48 <100 mg/dL Desirable LDL: less than 100 mg/dL Near Optimal/Above Optimal LDL: 110-129 mg/dL Borderline High LDL: 130-159 mg/dL High LDL: 160-189 mg/dL Very High LDL: greater than or equal to 190 mg/dL HDL 35 L >40 mg/dL Desirable HDL: greater than 40 mg/dL Note: This HDL assay may give artificially low results in patients with liver disease. Vit D 25-OH Tot 53.5 >30 ng/mL Health Based Reference Values* < 20 ng/mL Deficient 20-30 ng/mL Insufficient > 30 ng/mL Sufficient Coding Level of Care Code Est Pt Level 4 (97870) Complex EM visit Add On G2211 Diagnoses Type 2 diabetes mellitus with hyperglycemia, with long-term current use of insulin E11.65; Z79.4 Diabetes mellitus type: type 2 Dyslipidemia E78.5 Essential hypertension I10 Assessment & Plan Assessment & Plan (1) Diabetes mellitus with hyperglycemia, with long-term current use of insulin: Code(s): E11.65 - Type 2 diabetes mellitus with hyperglycemia; Z79.4 - intermediate (current) use of insulin Category: Medical Qualifiers: Diabetes mellitus type: type 2 Qualified Code(s): E11.65 - Type 2 diabetes mellitus with hyperglycemia; Z79.4 - truck terminal manager (current) use of insulin (2) Dyslipidemia: Code(s): E78.5 - Hyperlipidemia, unspecified Category: Medical (3) Essential hypertension: Code(s): I10 - Essential (primary) hypertension Category: Medical Plan Currently focusing on diabetes and dyslipidemia management, the patient's treatment plan includes maintaining prescribed medications and monitoring. The positive trend in diabetes control is evidenced by decreased A1c and improved kidney function. For dyslipidemia, Rosuvastatin will continue to address cholesterol effectively. Emphasis is placed on initiating regular exercise for cardiovascular health. Immunizations are reviewed, and the flu vaccine is recommended, with consideration for shingles vaccination in the future. Collaborative care includes ensuring continued communication with specialists involved in the patient's past neurosurgery. Health screenings are planned, including mammography and initiating colonoscopy to align with preventive care recommendations. The benefits of enhanced physical activity were reiterated, suggesting daily short-duration cardiovascular exercises to aid in further health progress. The patient was reminded to proceed with planned lab work be fore the next appointment scheduled for November. Patient was informed and verbally consented to the use of an ambient scribe for clinic note documentation during this visit. Orders: Orders Hemoglobin A1c 11/27/24 E11.65 - Type 2 diabetes mellitus with hyperglycemia, E78.5 - Hyperlipidemia, unspecified, I10 - Essential (primary) hypertension, Z79.4 - intermediate (current) use of insulin Basic Metabolic Panel Fasting 11/27/24 E11.65 - Type 2 diabetes mellitus with hyperglycemia, E78.5 - Hyperlipidemia, unspecified, I10 - Essential (primary) hypertension, Z79.4 - intermediate (current) use of insulin Aspartate Amino Transferase 11/27/24 E11.65 - Type 2 diabetes mellitus with hyperglycemia, E78.5 - Hyperlipidemia, unspecified, I10 - Essential (primary) hypertension, Z79.4 - truck terminal manager (current) use of insulin Alanine Aminotransferase 11/27/24 E11.65 - Type 2 diabetes mellitus with hyperglycemia, E78.5 - Hyperlipidemia, unspecified, I10 - Essential (primary) hypertension, Z79.4 - intermediate (current) use of insulin Lipid Panel 11/27/24 E11.65 - Type 2 diabetes mellitus with hyperglycemia, E78.5 - Hyperlipidemia, unspecified, I10 - Essential (primary) hypertension, Z79.4 - intermediate (current) use of insulin Microalbumin, Random (w Creat) 11/27/24 E11.65 - Type 2 diabetes mellitus with hyperglycemia, E78.5 - Hyperlipidemia, unspecified, I10 - Essential (primary) hypertension, Z79.4 - truck terminal manager (current) use of insulin Vitamin D 25-OH Total 11/27/24 E11.65 - Type 2 diabetes mellitus with hyperglycemia, E78.5 - Hyperlipidemia, unspecified, I10 - Essential (primary) hypertension, Z79.4 - truck terminal manager (current) use of insulin Medications: Refilled insulin glargine (Lantus Solostar U-100 Insulin) 54 units (0.54 mL) subcut QPM 16.2 mL 5RF 30 days E11.65 - Type 2 diabetes mellitus with hyperglycemia, Z79.4 - intermediate (current) use of insulin Jardiance (empagliflozin) Take 1 hour before breakfast in the morning just with a glass of water 10 mg PO QAM 30 tabs 5RF NS nifedipine ER 90 mg PO DAILY 90 tabs 1RF I10 - Essential (primary) hypertension
--- OUTSIDE RECORDS SUMMARY | 2024-07-04 09:27 | XMS_ITS | Clinical Summary ---
Author Organization [facility] it Address [address] [place] [address] Care Team Providers Care Warehouse Order Filler Name Role Phone Vanna Stephens MD Primary Care Provider Surgical History Surgery Date Site/Laterality Comments CHOLECYSTECTOMY PROCEDURE: [place] CHOLECYSTECTOMY TUBAL LIGATION PROCEDURE: HISTORICAL TUBAL LIGATION Medical History Medical History Date Comments HTN (hypertension) DX:HTN (hyper tension) Diabetes type 2, uncontrolled 07/25/2014 DX :Diabetes type 2, uncontrolled Obesity 07/25/2014 DX:Obesity Adrenal adenoma 01/21/2012 DX:Adrenal adeno ma Meningioma ([facility]/HCC) 03/10/2012 DX:Meningio ma ([facility]) Tobacco use disorder DX:Tobacco use disorder Anosmia 12/26/2014 DX:Anosmia Family History Medical History Relation Name Comments Diabetes Father Hypertension Father Glaucoma Maternal Grandmother Diabetes Mother Glaucoma Mother Hypertension Mother Blindness Neg Hx Cataracts Neg Hx Macular degeneration Neg Hx Strabismus Neg Hx Relation Name Status Comments Brother Alive 1,healthy Father Alive Maternal Grandmother Mother Sister Alive 1,healthy Social History Tobacco Use Types Packs/Day Years Used Date Smoking Tobacco: Every Day Cigarettes Smokeless Tobacco: Never Alcohol Use Standard Drinks/Week Comments Yes 0 (1 standard drink = 0.6 oz pur e alcohol) Sex and Gender Information Value Date Recorded Sex Assigned at Not on file Gender Identity Not on file Sexual Orientation Not on file Obstetrics History Plan of Treatment Health Maintenance Due Date Last Done Comments Breast Cancer Screening 1970 Cervical Cancer Screening: P ap Smear 07/27/1992 Zoster Vaccines (1 of 2) 07/27/2021 DTaP,Tdap,and Td Vaccines (2 - Td or Tdap) 05/08/2023 05/08/2013 COVID-19 Vaccine ( - 2023-2 5 season) 2024 Influenza Vaccine (#1) 2024 5, 05/08/2013 Hepatitis B Vaccines Completed 04/18/2014, 08/10/2013, 06/11/2013 HIB Vaccines Aged Out No longer eligi ble based on patient's age to complete this topic HPV Vaccines Aged Out No longer eligi ble based on patient's age to complete this topic Hepatitis A Vaccines Aged Out No long er eligible based on patient's age to complete this topic IPV Vaccines Aged Out No longer eligi ble based on patient's age to complete this topic MMR Vaccines Aged Out No longer eligi ble based on patient's age to complete this topic Meningococcal ACWY Vaccine Aged Out N o longer eligible based on patient's age to complete this topic Pneumococcal Vaccine: Pediatrics (0 to 5 Years) and At-Risk Patients (6 to 64 Years) Aged Out No longer eligible b ased on patient's age to complete this topic RSV Immunization Patients Under 20 months Aged Out No longer eligible b ased on patient's age to complete this topic Varicella Vaccines Aged Out No longer eligible based on patient's age to complete this topic Advance Directives Documents on File Type Date Recorded Patient Air Turning Machine Feeder Expl anation Health Care Decision (hx) 01/05/2012 TEREZA DIAZ DIRECTIVE Care Teams Warehouse Order Filler Relationship Specialty Start Date End Date Vanna Stephens MD [address] [place] [address] PCP - General Internal Medicine 07/27/16
== END 2024-07-04 10:12 | disposition home or self-care (01) ==
PROVIDERS: PCP Internal Medicine; Visit Provider Internal Medicine
DX: E11.65 Type 2 diabetes mellitus with hyperglycemia (principal); Z79.4 Long term (current) use of insulin; E78.5 Hyperlipidemia, unspecified; I10 Essential (primary) hypertension

== ENCOUNTER → 2024-07-04 09:04 | Outpatient (BNVA) | payer OTHER, SELFPAY | PROVIDERS: PCP Internal Medicine; Visit Provider Internal Medicine | DX: E11.65 Type 2 diabetes mellitus with hyperglycemia (principal); Z79.4 Long term (current) use of insulin; E78.5 Hyperlipidemia, unspecified; I10 Essential (primary) hypertension | CPT/HCPCS: 99212 ==

== ENCOUNTER 2025-02-05 10:23 | Outpatient (REF) | payer OTHER, SELFPAY ==
--- OUTSIDE RECORDS SUMMARY | 2025-02-05 12:12 | XMS_ITS | Clinical Summary ---
Author Organization [facility] Address [address] [place] [address] Care Team Providers Care Hot Room Attendant Name Role Phone Vanna Stephens MD Primary Care Provider [phone] Surgical History Surgery Date Site/Laterality Comments CHOLECYSTECTOMY PROCEDURE: [place] CHOLECYSTECTOMY TUBAL LIGATION PROCEDURE: HISTORICAL TUBAL LIGATION Medical History Medical History Date Comments HTN (hypertension) DX:HTN (hyper tension) Diabetes type 2, uncontrolled 07/25/2014 DX :Diabetes type 2, uncontrolled Obesity 07/25/2014 DX:Obesity Adrenal adenoma 01/21/2012 DX:Adrenal adeno ma Meningioma (CMS/HCC V24, CMS/HCC V28) 03/10/2012 DX:Meningioma ([facility]) Tobacco use disorder DX:Tobacco use disorder Anosmia [...] drink = 0.6 oz pur e alcohol) Comments Unknown Sex and Gender Information Value Date Recorded Sex Assigned at Not on file Legal Sex Female 4:49 AM EST Gender Identity Not on file Sexual Orientation Not on file Obstetrics History Plan of Treatment Health Maintenance Due Date Last Done Comments Breast Cancer Screening 1970 Cervical Cancer Screening: P ap Smear 07/27/1992 Pneumococcal Vaccine: 50+ Years (1 of 1 - PCV) 07/27/2021 Zoster Vaccines (1 of 2) 07/27/2021 DTaP,Tdap,and Td Vaccines (2 - Td or Tdap) 05/08/2023 05/08/2013 Depression Screening 05/30/2024 COVID-19 Vaccine (1 - 2023-2 5 season) 2025 Influenza Vaccine (#1) 2025 5, 05/08/2013 Hepatitis B Vaccines Completed 04/18/2014, [...] patient's age to complete this topic Meningococcal B Vaccine Aged Out No l onger eligible based on patient's age to complete this topic RSV Immunization Patients Under 20 months Aged Out No longer eligible b ased on patient's age to complete this topic Varicella Vaccines Aged Out No longer eligible based on patient's age to complete this topic Advance Directives Documents on File Type Date Recorded Patient Patient Accounting Representative Expl anation Health Care Decision (hx) 01/05/2012 TEREZA DIAZ DIRECTIVE Care Teams Hot Room Attendant Relationship Specialty Start Date End Date Vanna Stephens MD [address] [place] [address] PCP - General Internal Medicine 07/27/16
[2025-02-05 13:26] LABS: Hemoglobin A1C 219.6842 umol/L; Total Hemoglobin (HGBA1C) 3438.0097 umol/L
[2025-02-05 13:48] LABS: Alanine Aminotransferase 12 U/L (0-31); Anion Gap 10 (12-20); Aspartate Amino Transferase 37 U/L (5-31); Blood Urea Nitrogen 23 mg/dL (9-16); Calcium 8.8 mg/dL (8.4-10.2); Carbon Dioxide 20 mmol/L (22-29); Chloride 113 mmol/L (96-108); Cholesterol 97 mg/dL (<200); Estimated Glomerular Filt Rate 54; HDL Cholesterol 31 mg/dL (>40); Potassium 3.7 mmol/L (3.3-5.1); Sodium 139 mmol/L (135-145); Triglycerides 90 mg/dL (<150)
[2025-02-05 13:59] LABS: Microalbum/Creatinine Ratio Ur 22.7 ug/mg cr (<30)
== END 2025-02-05 10:24 | disposition home or self-care (01) ==
LOC: HO.HMGCLDS 10:23
PROVIDERS: PCP Internal Medicine; Visit Provider Internal Medicine
DX: I10 Essential (primary) hypertension (principal); E11.65 Type 2 diabetes mellitus with hyperglycemia; E78.5 Hyperlipidemia, unspecified; Z79.4 Long term (current) use of insulin
CPT/HCPCS: 36415; 80048; 80061; 82043; 82306; 82570; 83036; 84450; 84460

== ENCOUNTER 2025-02-14 14:14 | Outpatient (AMB) | payer OTHER, SELFPAY ==
--- NOTE | 2025-02-14 15:00 | MHC.PC.OV ---
Vital Signs 02/14/25 15:11 Height 5 ft 4 in Weight 191 lb BMI 32.8 BP 146/80 H Blood Pressure Location Lt brachial Position Sitting Respiration 15 Pulse 57 Pulse Source Pulse Oximeter Temp 98.0 F Temp Source Oral Pulse Oximetry (%) 97 Oxygen Delivery Method Room Air Comment Patient has not yet taken her blood pressure medicines this morning Intake Visit Reasons: Annual PE Intake Note: Pt is here today for her PE Allergies No Known Allergies Allergy (Verified 02/14/25 15:39) Medication List - Last Reconciled 02/14/25 by Vanna Stephens MD acetazolamide ER 500 mg PO BID aspirin 81 mg PO DAILY blood sugar diagnostic (FreeStyle Lite Strips) 1 strip miscellaneous TID 30 days cholecalciferol (vitamin D3) 50 mcg PO DAILY Jardiance (empagliflozin) 10 mg PO QAM NS lancets (FreeStyle Lancets) Use as directed 3 times a day before meals Lantus Solostar U-100 Insulin (insulin glargine) 54 units (0.54 mL) subcut QPM 30 days NS lisinopril 20 mg PO DAILY metformin 1,000 mg PO BID pen needle, diabetic Use to inject insulin once daily rosuvastatin 5 mg PO DAILY Tobacco use date assessed: 02/14/25 Dental Screening Dental Screen Date: 02/14/25 Did you have a dental visit in the last 12 months?: Yes Did you have a dental problem in the last 6 months where you did not have access to dental care?: No Was dental information given to patient?: Patient has dentist HPI Annual PE HPI Details 54-year-old lady with history significant for dyslipidemia, diabetes mellitus, hypertension, obesity, here today for her physical exam. She continues to smoke cigarettes, at least 5 a day with no desire to quit at present time. Blood pressure not well controlled, currently on lisinopril 20 mg daily but states she has not taken her blood pressure medicines this morning Diabetes mellitus not well controlled with hemoglobin A1c at 8%, currently taking metformin a 1000 mg only once a day in a.m., Lantus 54 units at night and Jardiance 10 mg daily in the morning Currently taking rosuvastatin 5 mg daily for dyslipidemia with latest lipids showing results within normal limits except for low good cholesterol levels Last mammogram was done at [facility] to 05/18/2022 with negative findings. Patient states she will schedule own mammogram appointment at [facility], does not want to go to [place] She also states that [facility] [place] , with last Pap smear with done a year ago, copy of results requested. ON LICENSE OF [facility] Medical History Tendinitis of right forearm Encephalocele Cerebrospinal fluid leak Obesity Meningioma Essential hypertension Dyslipidemia Diabetes mellitus with hyperglycemia, with long-term current use of insulin Surgical History H/O nasal sinusotomy History of ethmoidectomy History of resection of meningioma History of tubal ligation Family History Father Unknown family medical history Mother History of heart attack Stroke HTN (hypertension) Diabetes mellitus CVD (cardiovascular disease) Brother No problems noted. Sister No problems noted. Son No problems noted. Daughter No problems noted. Daughter No problems noted. Social History Housing: Apartment Alcohol intake: never Patient Tobacco Use Status: Current everyday Tobacco user Cigarettes Per Day: 5 e-Cigarette/Vaping Use: Never Used service: No Current occupational status: unemployed Cognitive needs: No Hearing needs: No Vision needs: Yes Questionnaire PHQ-9 Over the last 2 weeks, how often have you been bothered by any of the following problems? 1. Little interest or pleasure in doing things: not at all 2. Feeling down, depressed, or hopeless: not at all 3. Trouble falling or staying asleep, or sleeping too much: not at all 4. Feeling tired or having little energy: not at all 5. Poor appetite or overeating: not at all 6. Feeling bad about yourself - or that you are a failure or have let yourself or your family down: not at all 7. Trouble concentrating on things, such as reading the newspaper or watching television: not at all 8. Moving or speaking so slowly that other people could have noticed. Or the opposite - being so fidgety or restless that you have been moving around a lot more than usual: not at all 9. Thoughts that you would be better off or of hurting yourself in some way: not at all Total score: 0 Depression Screening Interpretation: Negative Depression Screening Done: Yes 87245 - PHQ-9 Billing: Yes Source: Developed by Drs. Bahman Wheat, Bety Amaya, Jerome Quiles and colleagues, with an educational arun from [employer]. Thrive Questionnaire Date Thrive assessed: 11/30/23 I am a: Patient What is your living situation today?: I have a steady place to live Within the past 12 months, did the food you bought not last and you didn't have the money to get more?: Never true Within the past 12 months, did you worry whether your food would run out before you got money to buy more?: Never true Do you have trouble paying for medicines?: No Do you have trouble getting transportation to medical appointments?: No Do you have trouble paying your heating and electricity bill?: No Do you have trouble taking care of your child, family member or friend?: No Do you have trouble with day-to-day activities such as bathing, preparing meals, shopping, managing finances, etc.?: No Are you currently unemployed and looking for a job?: No Are you interested in more education?: No Currently or been in a relationship where the following occur: No concerns reported THRIVE Score: 0 AUDIT C Alcohol Use Questionnaire (AUDIT-C) 1. How often do you have a drink containing alcohol?: Never Total Score: 0 Score Reviewed/Action Taken: Yes KYREE-7 AMB Questionnaire KYREE-7 Date KYREE - 7 assessed: 02/14/25 Feeling nervous, anxious, or on edge: 0 = Not at all Not being able to stop or control worryin = Not at all Worrying too much about different things: 0 = Not at all Trouble relaxin = Not at all Being so restless that it is hard to sit still: 0 = Not at all Becoming easily annoyed or irritable: 0 = Not at all Feeling afraid as if something awful might happen: 0 = Not at all Total KYREE-7 score (0-4 normal; 5-9 mild; 10-14 moderate; 15-21 severe): 0 Source: Developed by Bety Sanchez Kurt Kroenke and colleagues, with an educational arun from [employer]. KYREE-7 Assessment Billing KYREE-7 Assessment Tool: KYREE-7 Assessment 75978 Review of Systems Const Denies body aches, Denies fatigue, Denies fever(s), Denies headache(s) and Denies weakness Eyes Details: Goes to [facility] for her retinopathy screen, last seen in 2022 Denies change in vision ENT Denies dizziness, Denies headache(s), Denies nasal congestion, Denies nasal obstruction, Denies neck pain, Denies post nasal drip, Denies tinnitus and Denies sore throat Card Denies chest pain, Denies lightheadedness, Denies palpitations and Denies dyspnea Resp Denies chest congestion, Denies cough, Denies dyspnea and Denies wheezing GI Denies abdominal pain, Denies change in bowel habits and Denies heartburn Details: [facility], copy of results requested Denies urinary frequency, Denies dysuria and Denies urinary urgency Musc Denies myalgias, Denies muscle weakness, Denies neck pain and Denies numbness Skin/Breast Denies lesions and Denies rash Neuro Denies dizziness, Denies headache(s), Denies numbness and Denies weakness Psych Reports no additional complaints Endo Denies fatigue, Denies polydipsia, Denies polyuria and Denies palpitations Jaron/Lymph Denies easy bruising Aller/Immun Denies seasonal rhinorrhea and Denies wheezing Physical exam (Primary Care) Vital Signs: Last Vital Signs Temp 98.0 F 02/14/25 15:11 Pulse 57 02/14/25 15:11 Resp 15 02/14/25 15:11 BP 146/80 H 02/14/25 15:11 Pulse Ox 97 02/14/25 15:11 Oxygen Delivery Method Room Air 02/14/25 15:11 BMI result Body Mass Index 32.8 Tobacco/Smoking Status: Tobacco use Status Tobacco use date assessed 02/14/25 02/14/25 15:05 Patient Tobacco Use Status Current everyday Tobacco 02/14/25 15:05 e-Cigarette/Vaping Use Never Used 02/14/25 15:05 Are you ready to quit: No PHQ-9: PHQ-9 Score PHQ-9: Total score 0 02/14/25 16:15 Depression Screening Interpretation: Negative Thrive Assessment: Date of Thrive Assessment Date Thrive assessed 11/30/23 02/14/25 15:05 Currently or been in a relationship where the following occur: No concerns reported Advance Care Planning discussion: Completed/Scanned Date of discussion: 02/14/25 Who was present: Patient Forms completed: Health Care Proxy Time spent: 16-45 minutes Actual minutes spent: 3 Const Other: Alert oriented x3, no acute distress noted ambulatory with normal gait HENMA Head: Yes normocephalic Ears: external ears normal General nose exam: Normal external nose present and No nasal discharge present Eyes General: appearance normal, both eyes and all related structures Neck Other: Supple, no lymphadenopathy, thyroid gland nonpalpable Chest Chest palpation & inspection: normal inspection of the chest Breast/axilla palpation: normal palpation of the breasts Resp Auscultation: clear to auscultation bilaterally Cardio Other: S1-S2 present regular rate and rhythm GI Other: Obese, normal bowel sounds, soft, nontender, no mass palpated General: Yes no CVA tenderness Back/Spine/Pelvis Back: no CVA tenderness and No back tenderness Skin General skin exam: no rashes or lesions noted Neuro General: gait normal, tone normal, Normal light touch and pain sensation, no focal motor deficits and CN's II-XI intact bilaterally Extrem General: Yes full ROM, Yes no joint enlargement, Yes no clubbing, cyanosis or edema, Yes no calf tenderness and Yes normal gait Psych Appearance: grossly normal and well kempt Mental Status: mental status grossly normal Speech and movement: Normal speech and movement present Affect: normal affect Office Procedures Flu Questionnaire Does the patient have a severe egg allergy?: No Does the patient have severe life threatening allergies?: No Does the patient have a fever or illness today?: No Has the patient ever had Guillain-Mansfield Syndrome?: No Has the patient ever had any past reaction to a flu shot?: No Immunizations Fluarix [id number] (PF) 45 mcg (15 mcg x 3)/0.5 mL IM syringe Performing Provider: Vanna Stephens MD Performing Location: [facility] Administered by: Maria Luisa Mooney CMA on 02/14/25 16:19 Dose Route Admin Location Dispensed Lot Number Expiration Date [facility] Machine Spreader 0.5 mL IM Right Deltoid 0.5 mL [id number] 11/26/25 [id number] [employer] VIS Given Date VIS Provided VIS Publication Date 02/14/25 Single Vaccine 24 Eligibility Eligibility Date Funding Source Not VFC Eligible 02/14/25 Private Results Reviewed Results Reviewed: Name: Natalie Rayo Age/Sex: 54/F : 1970 Unit#: [id number] Attend Dr: Vanna Stephens MD Re02/05/25 Status: DEP [facility] Disch: SPEC : [id number] GABRIELLE: 02/05/25 STATUS: COMP REQ : [id number] RECD: 02/05/25-[address]: Vanna Stephens MD COMP: 02/05/25-1409 ENTERED: 02/05/25-[address]: ORDERED: Met Prof Fast, AST, ALT, Lipid Panel, Vitamin D 25-OH Test Result Flag Reference Sodium 139 135-145 mmol/L Potassium 3.7 3.3-5.1 mmol/L CL 113 H 96-108 mmol/L CO2 20 L 22-29 mmol/L Gap 10 L 12-20 BUN 23 H 9-16 mg/dL Creat 1.07 0.5-1.4 mg/dL eGFR 54 Chronic Kidney Disease: Estimated GFR < 60 mL/min/1.73m2 Severe Kidney Disease: Estimated GFR < 15 mL/min/1.73m2 FBS 143 H 60-99 mg/dL A fasting glucose of 126 mg/dl or greater on more than one occasion is considered diagnostic of diabetes. CA 8.8 # 8.4-10.2 mg/dL AST (GOT) 37 H 5-31 U/L ALT (GPT) 12 0-31 U/L Triglyceride 90 <150 mg/dL Desirable Triglyceride: less than 150 mg/dL Borderline High Triglyceride 150-199 mg/dL High Triglyceride: 200-499 mg/dL Very High Triglyceride: greater than or equal to 5OO mg/dL Cholesterol 97 <200 mg/dL Desirable Cholesterol: less than 200 mg/dL Borderline High Cholesterol: 200-239 mg/dL High Cholesterol: greater than 239 mg/dL LDL Calculated 48 <100 mg/dL Desirable LDL: less than 100 mg/dL Near Optimal/Above Optimal LDL: 110-129 mg/dL Borderline High LDL: 130-159 mg/dL High LDL: 160-189 mg/dL Very High LDL: greater than or equal to 190 mg/dL HDL 31 L >40 mg/dL Desirable HDL: greater than 40 mg/dL Note: This HDL assay may give artificially low results in patients with liver disease. Vitamin D 25-OH 69.6 >30 ng/mL Health Based Reference Values* < 20 ng/mL Deficient 20-30 ng/mL Insufficient > 30 ng/mL Sufficient Laboratory Tests 02/05/25 10:54 Estimat Average Glucose 183 Hemoglobin A1c % 8.0 H Urine Creatinine 250.58 Urine Microalbumin 57.0 Microalb/Creat Ratio 22.7 Coding Level of Care Code Est Pt Prev Care 40-64y(99926) Diagnoses Essential hypertension I10 Dyslipidemia E78.5 Type 2 diabetes mellitus with hyperglycemia, with long-term current use of insulin E11.65; Z79.4 Diabetes mellitus type: type 2 Obesity E66.9 Advance directive discussed with patient Z71.89 Annual visit for general adult medical examination with abnormal findings Z00.01 Additional Codes KYREE-7 Assessment Billing - KYREE-7 Assessment Tool: KYREE-7 Assessment 59705 ([id number]) PHQ-9 - 53457 - PHQ-9 Billing: Yes ([id number]) Vital Signs *Quality* - Advance Care Planning discussion: Completed/Scanned ([id number]) Vital Signs *Quality* - Time spent: 16-45 minutes ([id number]) Assessment & Plan Assessment & Plan (1) Essential hypertension: Code(s): I10 - Essential (primary) hypertension Category: Medical Plan: Stressed importance of taking medicine as directed on a regular basis. Will continue on lisinopril 20 mg daily , schedule nurse navigator visit to check blood pressure in a week (2) Dyslipidemia: Code(s): E78.5 - Hyperlipidemia, unspecified Category: Medical Plan: Latest fasting lipids showed results within normal limits except for low good cholesterol. Continued on rosuvastatin 5 mg daily (3) Diabetes mellitus with hyperglycemia, with long-term current use of insulin: Code(s): E11.65 - Type 2 diabetes mellitus with hyperglycemia; Z79.4 - retirement (current) use of insulin Category: Medical Qualifiers: Diabetes mellitus type: type 2 Qualified Code(s): E11.65 - Type 2 diabetes mellitus with hyperglycemia; Z79.4 - retirement (current) use of insulin Plan: Increase metformin to 1000 mg twice a day with meals, continue with Jardiance 10 mg daily and Lantus 54 units at night. Reminded to get an appointment with [facility] for her diabetes retinopathy screening. Flu shot given today. Repeat another hemoglobin A1c in 3 months. (4) Obesity: Code(s): E66.9 - Obesity, unspecified Category: Medical Plan: Yo. Discussed need to increase activity and weight reduction. Recommended focusing on improving health instead of dieting. Mediterranean diet is a healthy diet that helps, limit food high in fat, sugar, and calories. Eat slowly, pay attention to portion sizes, plan your meals ahead of time, start regular physical activity, at least 150 minutes of moderate intensity exercise (5) Advance directive discussed with patient: Code(s): Z71.89 - Other specified counseling Plan: Initiated the conversation about Advanced Directives. Advanced Directives help patients prepare for current and future decisions about their medical treatment and place of care. Discussed with patient that it is a process where a patients current condition and prognosis are reviewed, their wishes for information regarding their illness are elicited, and likely medical dilemmas are presented and options discussed. Healthcare proxy form completed today The form can be amended as needed, reviewed yearly and make changes as needed (6) Annual visit for general adult medical examination with abnormal findings: Code(s): Z00.01 - Encounter for general adult medical examination with abnormal findings Plan: Recent fasting lab results reviewed with patient.. Recommended dental visit every 6 months and yearly eye exams, for diabetes retinopathy screening. Take adequate calcium in diet and vitamin-D 3 at 2000 IU per cap once a day, in addition to weight-bearing exercises to help maintain good muscle tone and weight control. Instructed to do self-breast exam, and recommended to get yearly mammogram, patient states will make an appointment with [facility] for this year. [facility], last done in 2023 per patient, copy of results requested. Flu vaccine given today. Does not want to get COVID vaccine booster. Up-to-date her pneumonia vaccine. Cologuard test ordered for colon cancer screening Orders: Orders Influenza [id number] Immunization Today Z23 - Encounter for immunization Referrals Cologuard Test Z12.11 - Encounter for screening for malignant neoplasm of colon, Z12.12 - Encounter for screening for malignant neoplasm of rectum
[2025-02-14 15:11] VITALS: BP 146/80; PULSE 57; RESP 15; TEMP 36.7; O2SAT 97; BMI 32.8
--- OUTSIDE RECORDS SUMMARY | 2025-02-14 16:07 | XMS_ITS | Clinical Summary ---
Author Organization [facility] Address [address] [place] [address] Care Team Providers Care Funeral Service Manager Name Role Phone Vanna Stephens MD Primary Care Provider [phone] Surgical History Surgery Date Site/Laterality Comments CHOLECYSTECTOMY PROCEDURE: [place] CHOLECYSTECTOMY TUBAL LIGATION PROCEDURE: HISTORICAL TUBAL LIGATION Medical History Medical History Date Comments HTN (hypertension) DX:HTN (hyper tension) Diabetes type 2, uncontrolled 07/25/2014 DX :Diabetes type 2, uncontrolled Obesity 07/25/2014 DX:Obesity Adrenal adenoma 01/21/2012 DX:Adrenal adeno ma Meningioma (CMS/HCC V24, CMS/HCC V28) 03/10/2012 DX:Meningioma ([facility]) Tobacco use disorder DX:Tobacco use disorder Anosmia [...] Documents on File Type Date Recorded Patient Medical Research Scientist Expl anation Health Care Decision (hx) 01/05/2012 TEREZA DIAZ DIRECTIVE Care Teams Funeral Service Manager Relationship Specialty Start Date End Date Vanna Stephens MD [address] [place] [address] PCP - General Internal Medicine 07/27/16
== END 2025-02-14 16:25 | disposition home or self-care (01) ==
LOC: HO.HMCC 14:15
PROVIDERS: PCP Internal Medicine; Visit Provider Internal Medicine
DX: I10 Essential (primary) hypertension (principal); E78.5 Hyperlipidemia, unspecified; E11.65 Type 2 diabetes mellitus with hyperglycemia; Z79.4 Long term (current) use of insulin; E66.9 Obesity, unspecified; Z71.89 Other specified counseling; Z00.01 Encounter for general adult medical examination with abnormal findings; Z23 Encounter for immunization; Z00.00 Encounter for general adult medical examination without abnormal findings

== ENCOUNTER → 2025-02-14 14:14 | Outpatient (BNVA) | payer OTHER, SELFPAY | PROVIDERS: PCP Internal Medicine; Visit Provider Internal Medicine | DX: Z00.01 Encounter for general adult medical examination with abnormal findings (principal); E78.5 Hyperlipidemia, unspecified; E11.9 Type 2 diabetes mellitus without complications; I10 Essential (primary) hypertension; E66.9 Obesity, unspecified; E11.65 Type 2 diabetes mellitus with hyperglycemia; F17.210 Nicotine dependence, cigarettes, uncomplicated; Z23 Encounter for immunization; Z79.4 Long term (current) use of insulin; Z71.89 Other specified counseling; Z68.32 Body mass index [BMI] 32.0-32.9, adult | CPT/HCPCS: 90471; 90656; 96127; 99396; 99497 ==

== ENCOUNTER → 2025-02-22 10:03 | Outpatient (BNVA) | payer OTHER, SELFPAY | PROVIDERS: PCP Internal Medicine | DX: Z01.30 Encounter for examination of blood pressure without abnormal findings (principal) | CPT/HCPCS: 99211 ==